=== PATIENT | female | born 1965 | race Caucasian/White ===

== ENCOUNTER 2018-10-25 17:16 | Inpatient (IN) | payer MEDICAID, OTHER ==
[2018-10-25 18:39] LABS: ADD MAN DIFF? NO
[2018-10-25 18:45] LABS: WHITE BLOOD COUNT 5.7 10^3/ul (4.8-10.8)
[2018-10-25 18:45] LABS: BASOPHIL # 0.1 10^3/ul (0.0-0.1); BASOPHILS % 2.1 % (0.0-2.0); EOSINOPHILS # 0.2 10^3/ul (0.0-0.5); EOSINOPHILS % 3.7 % (0.0-7.0); HEMATOCRIT 39.6 % (37.0-47.0); HEMOGLOBIN 13.6 g/dl (12.0-16.0); LYMPHOCYTES # 1.6 10^3/ul (0.8-2.9); LYMPHOCYTES % 28.5 % (15.0-51.0); MEAN CORPUSCULAR HEMOGLOBIN 34.3 pg (29.0-33.0); MEAN CORPUSCULAR HGB CONC 34.3 g/dl (32.0-37.0); MEAN CORPUSCULAR VOLUME 99.7 fl (82.0-101.0); MEAN PLATELET VOLUME 10.2 fl (7.4-10.4); MONOCYTE # 0.4 10^3/ul (0.3-0.9); MONOCYTES % 7.7 % (0.0-11.0); NEUTROPHIL # 3.3 10^3/ul (1.6-7.5); NEUTROPHILS % 57.6 % (39.0-77.0); PLATELET COUNT 224 10^3/UL (140-415); RED BLOOD COUNT 3.97 10^6/ul (4.20-5.40); RED CELL DISTRIBUTION WIDTH 11.7 % (11.5-14.5)
[2018-10-25 18:55] LABS: URINE BLOOD (Dip) POC Trace-intact (NEGATIVE); URINE GLUCOSE (Dip) POC Negative (NEGATIVE); URINE KETONES (Dip) POC Negative (NEGATIVE); URINE LEUKOCYTE EST (Dip) POC Negative (NEGATIVE); URINE NITRITE (Dip) POC Negative (NEGATIVE); URINE TOTAL PROTEIN POC Negative (NEGATIVE)
[2018-10-25 18:55] LABS: URINE PH (Dip) POC 6.5 (5.0-8.5)
[2018-10-25] MEDS: ONDANSETRON 4 MG INJ IV (19:01)
[2018-10-25] MEDS: morphine 2 MG INJ IV (19:01)
[2018-10-25 19:02] LABS: ADD UMIC YES; UR ASCORBIC ACID NEGATIVE (NEGATIVE); UR BILIRUBIN (Dip) NEGATIVE (NEGATIVE); UR BLOOD (Dip) 1+ mg/dL (NEGATIVE); UR CLARITY CLEAR (CLEAR); UR COLOR COLORLESS (YELLOW); UR GLUCOSE (Dip) NEGATIVE (NEGATIVE); UR KETONES (Dip) NEGATIVE (NEGATIVE); UR LEUKOCYTE ESTERASE (Dip) NEGATIVE Leu/ul (NEGATIVE); UR NITRITE (Dip) NEGATIVE (NEGATIVE); UR RBC 1 /HPF (0-5); UR SPECIFIC GRAVITY (Dip) 1.006 (1.003-1.030); UR TOTAL PROTEIN (Dip) NEGATIVE (NEGATIVE); UR UROBILINOGEN (Dip) NEGATIVE (NEGATIVE); UR WBC 1 /HPF (0-5)
[2018-10-25 19:03] LABS: ALANINE AMINOTRANSFERASE 27 IU/L (13-69); ALBUMIN 4.3 g/dl (3.3-4.9); ALBUMIN/GLOBULIN RATIO 1.34; ALKALINE PHOSPHATASE 86 IU/L (42-121); ANION GAP 9 (5-13); ASPARTATE AMINO TRANSFERASE 33 IU/L (15-46); BILIRUBIN,INDIRECT 0.5 mg/dl (0-1.1); BILIRUBIN,TOTAL 0.5 mg/dl (0.2-1.3); BLOOD UREA NITROGEN 15 mg/dl (7-20); CALCIUM 9.8 mg/dl (8.4-10.2); CARBON DIOXIDE 24 mmol/L (21-31); CHLORIDE 107 mmol/L (97-110); CREATININE 0.81 mg/dl (0.44-1.00); Estimated GFR > 60 mL/min (>60); GLUCOSE 93 mg/dl (70-220); POTASSIUM 4.2 mmol/L (3.5-5.1); SODIUM 140 mmol/L (135-144); TOTAL PROTEIN 7.5 g/dl (6.1-8.1)
[2018-10-25 19:04] LABS: INR 0.96; PROTIME 12.9 Sec (11.9-14.9)
[2018-10-25 19:05] LABS: PARTIAL THROMBOPLASTIN TIME 25.8 Sec (23.0-35.0)
[2018-10-25 19:14] LABS: TROPONIN-I < 0.012 ng/ml (0.000-0.120)
[2018-10-25] MEDS: TETANUS IMMUNE GLOB 250 UNIT SYG IM (19:15)
[2018-10-25] MEDS: DIPHTH/TET/ACEL PERTUSS (ADULT) 0.5 ML VIAL IM* (19:16)
[2018-10-25] MEDS: metroNIDAZOLE 500 MG/NS (PMX) 100 ML IVPB (19:16)
[2018-10-25] MEDS: DIAZEPAM 5 MG/ML SYG IV (20:38)
[2018-10-25] MEDS ORDERED: ACETAMINOPHEN 650 MG SUPP PR (22:00)
[2018-10-25] MEDS ORDERED: ALBUTEROL/IPRATROPIUM (NEB) 3 ML AMP NEB (22:00)
[2018-10-25] MEDS: DEXTROSE 5%-0.45% NACL 1,000 ML IV (22:52)
[2018-10-25] MEDS: KETOROLAC 30 MG INJ IV (22:52)
[2018-10-25 23:05] LABS: LACTIC ACID 0.9 mmol/L (0.5-2.0)
[2018-10-25] MEDS: morphine 4 MG/ML VIAL IV (23:34)
[2018-10-25] MEDS: PANTOPRAZOLE 40 MG INJ IV (23:34)
[2018-10-26] MEDS: CYCLOBENZAPRINE 10 MG TAB PO ×3 (01:12→18:24)
[2018-10-26] MEDS: LORAZEPAM 2 MG INJ IV (01:49)
[2018-10-26 05:08] LABS: ADD MAN DIFF? NO
[2018-10-26] MEDS: morphine 4 MG/ML VIAL IV ×3 (05:08→19:32)
[2018-10-26 05:17] LABS: BASOPHIL # 0.1 10^3/ul (0.0-0.1); EOSINOPHILS # 0.2 10^3/ul (0.0-0.5); EOSINOPHILS % 3.9 % (0.0-7.0); HEMATOCRIT 37.3 % (37.0-47.0); HEMOGLOBIN 12.6 g/dl (12.0-16.0); LYMPHOCYTES # 1.6 10^3/ul (0.8-2.9); LYMPHOCYTES % 29.1 % (15.0-51.0); MEAN CORPUSCULAR HEMOGLOBIN 33.5 pg (29.0-33.0); MEAN CORPUSCULAR HGB CONC 33.8 g/dl (32.0-37.0); MEAN CORPUSCULAR VOLUME 99.2 fl (82.0-101.0); MONOCYTE # 0.4 10^3/ul (0.3-0.9); MONOCYTES % 7.8 % (0.0-11.0); NEUTROPHIL # 3.2 10^3/ul (1.6-7.5); NEUTROPHILS % 56.8 % (39.0-77.0); PLATELET COUNT 203 10^3/UL (140-415); RED BLOOD COUNT 3.76 10^6/ul (4.20-5.40); RED CELL DISTRIBUTION WIDTH 11.7 % (11.5-14.5)
[2018-10-26 05:17] LABS: WHITE BLOOD COUNT 5.6 10^3/ul (4.8-10.8)
[2018-10-26 05:38] LABS: ANION GAP 3 (5-13); BLOOD UREA NITROGEN 15 mg/dl (7-20); CALCIUM 9.2 mg/dl (8.4-10.2); CARBON DIOXIDE 31 mmol/L (21-31); CHLORIDE 107 mmol/L (97-110); CREATININE 0.84 mg/dl (0.44-1.00); Estimated GFR > 60 mL/min (>60); GLUCOSE 85 mg/dl (70-220); POTASSIUM 4.3 mmol/L (3.5-5.1); SODIUM 141 mmol/L (135-144)
[2018-10-26] MEDS: PANTOPRAZOLE 40 MG INJ IV (05:42)
[2018-10-26] MEDS: metroNIDAZOLE 500 MG/NS (PMX) 100 ML IVPB ×4 (05:42→23:44)
[2018-10-26] MEDS ORDERED: PANTOPRAZOLE 40 MG INJ IV (06:00)
[2018-10-26] MEDS: DEXTROSE 5%-0.45% NACL 1,000 ML IV ×2 (08:53→17:32)
[2018-10-26] MEDS: DIAZEPAM 5 MG/ML SYG IV (14:49)
[2018-10-26] MEDS: MAGNESIUM SULFATE 2 GM/50 ML 50 ML IVPB (21:27)
[2018-10-26] MEDS ORDERED: TETANUS IMMUNE GLOB 250 UNIT SYG IM (22:30)
[2018-10-26] MEDS: ONDANSETRON 4 MG INJ IV (23:07)
[2018-10-27] MEDS: DEXTROSE 5%-0.45% NACL 1,000 ML IV ×2 (03:10→20:34)
[2018-10-27] MEDS: KETOROLAC 30 MG INJ IV ×2 (03:10→11:55)
[2018-10-27] MEDS: MAGNESIUM SULFATE 2 GM/50 ML 50 ML IVPB ×2 (04:16→20:30)
[2018-10-27 05:21] LABS: ADD MAN DIFF? NO
[2018-10-27 05:27] LABS: WHITE BLOOD COUNT 6.7 10^3/ul (4.8-10.8)
[2018-10-27 05:27] LABS: BASOPHIL # 0.1 10^3/ul (0.0-0.1); BASOPHILS % 1.2 % (0.0-2.0); EOSINOPHILS # 0.1 10^3/ul (0.0-0.5); HEMATOCRIT 34.6 % (37.0-47.0); HEMOGLOBIN 12.1 g/dl (12.0-16.0); LYMPHOCYTES % 15.3 % (15.0-51.0); MEAN CORPUSCULAR HEMOGLOBIN 34.6 pg (29.0-33.0); MEAN CORPUSCULAR VOLUME 98.9 fl (82.0-101.0); MEAN PLATELET VOLUME 10.2 fl (7.4-10.4); MONOCYTE # 0.4 10^3/ul (0.3-0.9); MONOCYTES % 5.7 % (0.0-11.0); NEUTROPHIL # 5.1 10^3/ul (1.6-7.5); NEUTROPHILS % 76.5 % (39.0-77.0); PLATELET COUNT 206 10^3/UL (140-415); RED CELL DISTRIBUTION WIDTH 11.8 % (11.5-14.5)
[2018-10-27] MEDS: CYCLOBENZAPRINE 10 MG TAB PO (05:35)
[2018-10-27 05:54] LABS: MAGNESIUM 2.5 mg/dl (1.7-2.5)
[2018-10-27] MEDS: metroNIDAZOLE 500 MG/NS (PMX) 100 ML IVPB ×4 (06:04→23:51)
[2018-10-27] MEDS ORDERED: DIAZEPAM 2 MG TAB PO (16:30)
[2018-10-27] MEDS: DIAZEPAM 2 MG TAB PO (18:14)
[2018-10-27 19:53] LABS: C-REACTIVE PROTEIN 0.8 mg/dl (0.0-0.9)
[2018-10-27 20:11] LABS: PROCALCITONIN 0.03 ng/mL (0.00-0.10)
[2018-10-27] MEDS: DIAZEPAM 5 MG TAB PO (20:30)
[2018-10-27 20:35] LABS: ERYTHROCYTE SEDIMENTATION RATE 10 mm/Hr (0-30)
[2018-10-28] MEDS: DIAZEPAM 5 MG TAB PO ×7 (01:00→23:01)
[2018-10-28] MEDS: KETOROLAC 30 MG INJ IV ×2 (03:32→19:54)
[2018-10-28] MEDS: SOD CHLORIDE 0.9% 500 ML IV (04:19)
[2018-10-28] MEDS: DEXTROSE 5%-0.45% NACL 1,000 ML IV ×2 (04:19→17:37)
[2018-10-28] MEDS: metroNIDAZOLE 500 MG/NS (PMX) 100 ML IVPB ×3 (05:19→17:31)
[2018-10-28 05:37] LABS: ANION GAP 3 (5-13); BLOOD UREA NITROGEN 8 mg/dl (7-20); CALCIUM 8.9 mg/dl (8.4-10.2); CARBON DIOXIDE 28 mmol/L (21-31); CHLORIDE 110 mmol/L (97-110); CREATININE 0.73 mg/dl (0.44-1.00); Estimated GFR > 60 mL/min (>60); GLUCOSE 95 mg/dl (70-220); MAGNESIUM 2.2 mg/dl (1.7-2.5); PHOSPHORUS 3.6 mg/dl (2.5-4.9); POTASSIUM 4.1 mmol/L (3.5-5.1); SODIUM 141 mmol/L (135-144)
[2018-10-28] MEDS: ENOXAPARIN 40 MG/0.4 ML SYG SC ×2 (09:00→09:16)
[2018-10-28] MEDS: FAMOTIDINE 20 MG INJ IV (09:14)
[2018-10-28] MEDS: MAGNESIUM SULFATE 2 GM/50 ML 50 ML IVPB ×3 (10:19→20:25)
[2018-10-29] MEDS: metroNIDAZOLE 500 MG/NS (PMX) 100 ML IVPB ×4 (00:15→18:20)
[2018-10-29] MEDS: KETOROLAC 30 MG INJ IV (02:54)
[2018-10-29] MEDS: DIAZEPAM 5 MG TAB PO ×7 (02:55→21:28)
[2018-10-29 05:34] LABS: ANION GAP 5 (5-13); BLOOD UREA NITROGEN 8 mg/dl (7-20); CALCIUM 8.9 mg/dl (8.4-10.2); CARBON DIOXIDE 27 mmol/L (21-31); CHLORIDE 109 mmol/L (97-110); CREATININE 0.75 mg/dl (0.44-1.00); Estimated GFR > 60 mL/min (>60); GLUCOSE 84 mg/dl (70-220); MAGNESIUM 2.3 mg/dl (1.7-2.5); PHOSPHORUS 3.9 mg/dl (2.5-4.9); POTASSIUM 3.8 mmol/L (3.5-5.1); SODIUM 141 mmol/L (135-144)
[2018-10-29] MEDS: ENOXAPARIN 40 MG/0.4 ML SYG SC (09:00)
[2018-10-29] MEDS: CYCLOBENZAPRINE 10 MG TAB PO (09:43)
[2018-10-29] MEDS: FAMOTIDINE 20 MG INJ IV (09:53)
[2018-10-29] MEDS: MAGNESIUM SULFATE 2 GM/50 ML 50 ML IVPB ×3 (09:53→21:29)
[2018-10-29 18:01] LABS: ADD UMIC YES; UR ASCORBIC ACID NEGATIVE (NEGATIVE); UR BACTERIA FEW /HPF (NONE SEEN); UR BILIRUBIN (Dip) NEGATIVE (NEGATIVE); UR BLOOD (Dip) 1+ mg/dL (NEGATIVE); UR CLARITY CLEAR (CLEAR); UR COLOR STRAW (YELLOW); UR GLUCOSE (Dip) NEGATIVE (NEGATIVE); UR KETONES (Dip) NEGATIVE (NEGATIVE); UR LEUKOCYTE ESTERASE (Dip) 2+ Leu/ul (NEGATIVE); UR NITRITE (Dip) NEGATIVE (NEGATIVE); UR RBC 1 /HPF (0-5); UR SPECIFIC GRAVITY (Dip) 1.004 (1.003-1.030); UR SQUAMOUS EPITHELIAL CELL FEW /HPF (FEW); UR TOTAL PROTEIN (Dip) NEGATIVE (NEGATIVE); UR UROBILINOGEN (Dip) NEGATIVE (NEGATIVE); UR WBC 8 /HPF (0-5)
[2018-10-30] MEDS: metroNIDAZOLE 500 MG/NS (PMX) 100 ML IVPB ×5 (00:26→23:50)
[2018-10-30] MEDS: DIAZEPAM 5 MG TAB PO ×9 (00:26→23:49)
[2018-10-30 06:38] LABS: ANION GAP 5 (5-13); BLOOD UREA NITROGEN 11 mg/dl (7-20); CALCIUM 9.2 mg/dl (8.4-10.2); CARBON DIOXIDE 28 mmol/L (21-31); CHLORIDE 109 mmol/L (97-110); CREATININE 0.79 mg/dl (0.44-1.00); Estimated GFR > 60 mL/min (>60); GLUCOSE 91 mg/dl (70-220); MAGNESIUM 2.3 mg/dl (1.7-2.5); PHOSPHORUS 4.1 mg/dl (2.5-4.9); POTASSIUM 3.9 mmol/L (3.5-5.1); SODIUM 142 mmol/L (135-144)
[2018-10-30 06:52] LABS: FREE T4 (FREE THYROXINE) 1.01 ng/dl (0.64-1.79)
[2018-10-30 07:06] LABS: TRIIODOTHYRONINE 0.94 ng/ml (0.97-1.69)
[2018-10-30] MEDS: MAGNESIUM SULFATE 2 GM/50 ML 50 ML IVPB ×3 (08:56→21:43)
[2018-10-30] MEDS: FAMOTIDINE 20 MG TAB PO (08:56)
[2018-10-30] MEDS: ENOXAPARIN 40 MG/0.4 ML SYG SC (08:59)
[2018-10-30] MEDS: morphine 4 MG/ML VIAL IV ×2 (12:25→18:57)
[2018-10-30] MEDS: FOSFOMYCIN 3 GM PACKET PO (12:32)
[2018-10-30] MEDS: ONDANSETRON 4 MG INJ IV (14:20)
[2018-10-30] MEDS: DIAZEPAM 5 MG/ML SYG IV (15:56)
[2018-10-30 18:04] LABS: CSF MN% 57.2 %; CSF PMN% 42.8 %; CSF RBC 5000 /uL (0-0); CSF WBC 7 /cmm (0-10)
[2018-10-30 18:33] LABS: TOTAL PROTEIN,CSF 56 mg/dl (12-60)
[2018-10-30 18:33] LABS: GLUCOSE,CSF 54 mg/dl (50-80)
[2018-10-30 18:36] LABS: CSF COLOR PINKISH
[2018-10-30 18:36] LABS: CSF CLARITY SLIGHTLY HAZY; CSF VOLUME 4.2 ml; CSF#TUBES REC'D 4
[2018-10-30 18:37] LABS: CSF#TUBE COUNT TUBE#4
[2018-10-30] MEDS: LIDOCAINE 1% (MPF) 5 ML VIAL (20:02)
[2018-10-30] MEDS: CYCLOBENZAPRINE 10 MG TAB PO (23:49)
[2018-10-31] MEDS: DIAZEPAM 5 MG TAB PO ×7 (03:09→22:49)
[2018-10-31] MEDS: metroNIDAZOLE 500 MG/NS (PMX) 100 ML IVPB ×3 (06:11→17:29)
[2018-10-31 06:38] LABS: ANION GAP 5 (5-13); BLOOD UREA NITROGEN 10 mg/dl (7-20); CALCIUM 8.8 mg/dl (8.4-10.2); CARBON DIOXIDE 28 mmol/L (21-31); CHLORIDE 106 mmol/L (97-110); CREATININE 0.81 mg/dl (0.44-1.00); Estimated GFR > 60 mL/min (>60); GLUCOSE 84 mg/dl (70-220); MAGNESIUM 2.1 mg/dl (1.7-2.5); PHOSPHORUS 4.7 mg/dl (2.5-4.9); POTASSIUM 4.1 mmol/L (3.5-5.1); SODIUM 139 mmol/L (135-144)
[2018-10-31] MEDS: FAMOTIDINE 20 MG TAB PO (08:25)
[2018-10-31] MEDS: MAGNESIUM SULFATE 2 GM/50 ML 50 ML IVPB ×3 (08:26→21:02)
[2018-10-31] MEDS: ENOXAPARIN 40 MG/0.4 ML SYG SC (08:31)
[2018-10-31] MEDS ORDERED: BISACODYL (EC) 5 MG TAB PO (10:00)
[2018-10-31] MEDS: ACETAMINOPHEN 325 MG TAB PO ×2 (11:23→15:05)
[2018-10-31] MEDS: POLYETHYLENE GLYCOL 17 GM PACKET PO ×2 (11:23→21:01)
[2018-10-31] MEDS: CYCLOBENZAPRINE 10 MG TAB PO (15:04)
[2018-10-31] MEDS: DOCUSATE SODIUM 100 MG CAP PO (21:00)
[2018-10-31] MEDS: morphine 4 MG/ML VIAL IV (21:02)
[2018-11-01] MEDS: metroNIDAZOLE 500 MG/NS (PMX) 100 ML IVPB ×4 (01:05→17:02)
[2018-11-01] MEDS: DIAZEPAM 5 MG TAB PO ×8 (01:05→21:21)
[2018-11-01] MEDS: morphine 4 MG/ML VIAL IV ×4 (03:37→21:18)
[2018-11-01 06:13] LABS: ADD MAN DIFF? NO
[2018-11-01 06:17] LABS: WHITE BLOOD COUNT 5.9 10^3/ul (4.8-10.8)
[2018-11-01 06:17] LABS: BASOPHIL # 0.1 10^3/ul (0.0-0.1); BASOPHILS % 1.7 % (0.0-2.0); EOSINOPHILS # 0.3 10^3/ul (0.0-0.5); EOSINOPHILS % 5.4 % (0.0-7.0); HEMATOCRIT 35.8 % (37.0-47.0); HEMOGLOBIN 12.1 g/dl (12.0-16.0); LYMPHOCYTES # 1.5 10^3/ul (0.8-2.9); LYMPHOCYTES % 24.6 % (15.0-51.0); MEAN CORPUSCULAR HGB CONC 33.8 g/dl (32.0-37.0); MEAN CORPUSCULAR VOLUME 100.6 fl (82.0-101.0); MEAN PLATELET VOLUME 10.4 fl (7.4-10.4); MONOCYTE # 0.4 10^3/ul (0.3-0.9); MONOCYTES % 6.9 % (0.0-11.0); NEUTROPHIL # 3.6 10^3/ul (1.6-7.5); NEUTROPHILS % 61.1 % (39.0-77.0); PLATELET COUNT 189 10^3/UL (140-415); RED BLOOD COUNT 3.56 10^6/ul (4.20-5.40); RED CELL DISTRIBUTION WIDTH 11.5 % (11.5-14.5)
[2018-11-01 06:49] LABS: ANION GAP 5 (5-13); BLOOD UREA NITROGEN 14 mg/dl (7-20); CALCIUM 9.1 mg/dl (8.4-10.2); CARBON DIOXIDE 28 mmol/L (21-31); CHLORIDE 104 mmol/L (97-110); CREATININE 0.88 mg/dl (0.44-1.00); Estimated GFR > 60 mL/min (>60); GLUCOSE 83 mg/dl (70-220); PHOSPHORUS 4.2 mg/dl (2.5-4.9); POTASSIUM 4.8 mmol/L (3.5-5.1); SODIUM 137 mmol/L (135-144)
[2018-11-01] MEDS: ENOXAPARIN 40 MG/0.4 ML SYG SC (09:00)
[2018-11-01] MEDS: DOCUSATE SODIUM 100 MG CAP PO ×2 (09:23→21:21)
[2018-11-01] MEDS: POLYETHYLENE GLYCOL 17 GM PACKET PO ×2 (09:23→21:21)
[2018-11-01] MEDS: FAMOTIDINE 20 MG TAB PO (09:31)
[2018-11-01] MEDS: MAGNESIUM SULFATE 2 GM/50 ML 50 ML IVPB ×3 (09:32→21:21)
[2018-11-02] MEDS: DIAZEPAM 5 MG TAB PO ×8 (00:18→20:55)
[2018-11-02] MEDS: metroNIDAZOLE 500 MG/NS (PMX) 100 ML IVPB ×4 (00:18→18:40)
[2018-11-02] MEDS: morphine 4 MG/ML VIAL IV (05:56)
[2018-11-02 06:40] LABS: ANION GAP 6 (5-13); BLOOD UREA NITROGEN 11 mg/dl (7-20); CALCIUM 9.5 mg/dl (8.4-10.2); CARBON DIOXIDE 29 mmol/L (21-31); CHLORIDE 104 mmol/L (97-110); CREATININE 0.75 mg/dl (0.44-1.00); Estimated GFR > 60 mL/min (>60); GLUCOSE 93 mg/dl (70-220); PHOSPHORUS 4.3 mg/dl (2.5-4.9); POTASSIUM 4.1 mmol/L (3.5-5.1); SODIUM 139 mmol/L (135-144)
[2018-11-02] MEDS: DOCUSATE SODIUM 100 MG CAP PO ×2 (08:59→20:55)
[2018-11-02] MEDS: FAMOTIDINE 20 MG TAB PO (08:59)
[2018-11-02] MEDS: MAGNESIUM SULFATE 2 GM/50 ML 50 ML IVPB ×3 (09:00→23:04)
[2018-11-02] MEDS: POLYETHYLENE GLYCOL 17 GM PACKET PO ×2 (09:00→20:56)
[2018-11-02] MEDS: ENOXAPARIN 40 MG/0.4 ML SYG SC (09:12)
[2018-11-02] MEDS: LACTULOSE 30ML CUP PO (11:00)
[2018-11-02] MEDS: CYCLOBENZAPRINE 10 MG TAB PO (14:00)
[2018-11-02] MEDS: IBUPROFEN 400 MG TAB PO (17:43)
[2018-11-02] MEDS: ONDANSETRON 4 MG INJ IV (21:16)
[2018-11-03] MEDS: metroNIDAZOLE 500 MG/NS (PMX) 100 ML IVPB ×3 (00:37→11:30)
[2018-11-03] MEDS: IBUPROFEN 400 MG TAB PO ×2 (00:37→11:30)
[2018-11-03] MEDS: DIAZEPAM 5 MG TAB PO ×8 (00:37→21:34)
[2018-11-03 05:15] LABS: ADD MAN DIFF? NO
[2018-11-03 05:18] LABS: WHITE BLOOD COUNT 4.1 10^3/ul (4.8-10.8)
[2018-11-03 05:18] LABS: BASOPHIL # 0.1 10^3/ul (0.0-0.1); EOSINOPHILS # 0.3 10^3/ul (0.0-0.5); EOSINOPHILS % 8.4 % (0.0-7.0); HEMATOCRIT 35.8 % (37.0-47.0); LYMPHOCYTES # 1.2 10^3/ul (0.8-2.9); LYMPHOCYTES % 29.1 % (15.0-51.0); MEAN CORPUSCULAR HEMOGLOBIN 33.7 pg (29.0-33.0); MEAN CORPUSCULAR HGB CONC 33.5 g/dl (32.0-37.0); MEAN CORPUSCULAR VOLUME 100.6 fl (82.0-101.0); MEAN PLATELET VOLUME 10.6 fl (7.4-10.4); MONOCYTE # 0.3 10^3/ul (0.3-0.9); MONOCYTES % 7.9 % (0.0-11.0); NEUTROPHIL # 2.1 10^3/ul (1.6-7.5); NEUTROPHILS % 52.4 % (39.0-77.0); PLATELET COUNT 185 10^3/UL (140-415); RED BLOOD COUNT 3.56 10^6/ul (4.20-5.40); RED CELL DISTRIBUTION WIDTH 11.6 % (11.5-14.5)
[2018-11-03 05:33] LABS: PHOSPHORUS 4.1 mg/dl (2.5-4.9)
[2018-11-03 05:33] LABS: MAGNESIUM 2.5 mg/dl (1.7-2.5)
[2018-11-03 05:35] LABS: ANION GAP 5 (5-13); BLOOD UREA NITROGEN 14 mg/dl (7-20); CALCIUM 9.4 mg/dl (8.4-10.2); CARBON DIOXIDE 28 mmol/L (21-31); CHLORIDE 107 mmol/L (97-110); CREATININE 0.74 mg/dl (0.44-1.00); Estimated GFR > 60 mL/min (>60); GLUCOSE 95 mg/dl (70-220); SODIUM 140 mmol/L (135-144)
[2018-11-03] MEDS: DOCUSATE SODIUM 100 MG CAP PO ×2 (09:00→20:48)
[2018-11-03] MEDS: POLYETHYLENE GLYCOL 17 GM PACKET PO ×2 (09:00→20:48)
[2018-11-03] MEDS: ENOXAPARIN 40 MG/0.4 ML SYG SC (09:00)
[2018-11-03] MEDS: FAMOTIDINE 20 MG TAB PO (09:08)
[2018-11-03] MEDS: MAGNESIUM SULFATE 2 GM/50 ML 50 ML IVPB ×3 (10:37→22:11)
[2018-11-03] MEDS: SOD CHLORIDE 0.9% 1,000 ML IV (20:50)
[2018-11-03] MEDS: metroNIDAZOLE 500 MG TAB PO (21:34)
[2018-11-04] MEDS: DIAZEPAM 5 MG TAB PO ×7 (00:32→23:35)
[2018-11-04] MEDS: SOD CHLORIDE 0.9% 500 ML IV (00:37)
[2018-11-04 04:57] LABS: WHITE BLOOD COUNT 4.1 10^3/ul (4.8-10.8)
[2018-11-04 04:57] LABS: ADD MAN DIFF? NO; BASOPHIL # 0.1 10^3/ul (0.0-0.1); BASOPHILS % 1.9 % (0.0-2.0); EOSINOPHILS # 0.3 10^3/ul (0.0-0.5); EOSINOPHILS % 6.5 % (0.0-7.0); HEMATOCRIT 34.8 % (37.0-47.0); HEMOGLOBIN 11.7 g/dl (12.0-16.0); LYMPHOCYTES # 1.4 10^3/ul (0.8-2.9); LYMPHOCYTES % 33.7 % (15.0-51.0); MEAN CORPUSCULAR HGB CONC 33.6 g/dl (32.0-37.0); MEAN CORPUSCULAR VOLUME 101.2 fl (82.0-101.0); MEAN PLATELET VOLUME 10.4 fl (7.4-10.4); MONOCYTE # 0.3 10^3/ul (0.3-0.9); NEUTROPHIL # 2.1 10^3/ul (1.6-7.5); NEUTROPHILS % 50.7 % (39.0-77.0); PLATELET COUNT 179 10^3/UL (140-415); RED BLOOD COUNT 3.44 10^6/ul (4.20-5.40); RED CELL DISTRIBUTION WIDTH 11.8 % (11.5-14.5)
[2018-11-04 05:16] LABS: PHOSPHORUS 3.5 mg/dl (2.5-4.9)
[2018-11-04 05:16] LABS: MAGNESIUM 2.2 mg/dl (1.7-2.5)
[2018-11-04 05:17] LABS: ANION GAP 3 (5-13); BLOOD UREA NITROGEN 12 mg/dl (7-20); CALCIUM 8.9 mg/dl (8.4-10.2); CARBON DIOXIDE 27 mmol/L (21-31); CHLORIDE 111 mmol/L (97-110); CREATININE 0.73 mg/dl (0.44-1.00); Estimated GFR > 60 mL/min (>60); GLUCOSE 92 mg/dl (70-220); POTASSIUM 4.2 mmol/L (3.5-5.1); SODIUM 141 mmol/L (135-144)
[2018-11-04] MEDS: metroNIDAZOLE 500 MG TAB PO ×3 (05:56→22:12)
[2018-11-04] MEDS: POLYETHYLENE GLYCOL 17 GM PACKET PO ×2 (09:00→20:53)
[2018-11-04] MEDS: DOCUSATE SODIUM 100 MG CAP PO ×2 (09:00→20:52)
[2018-11-04] MEDS: FAMOTIDINE 20 MG TAB PO (09:13)
[2018-11-04] MEDS: MAGNESIUM SULFATE 2 GM/50 ML 50 ML IVPB ×3 (09:13→20:53)
[2018-11-04] MEDS: ENOXAPARIN 40 MG/0.4 ML SYG SC (09:16)
[2018-11-04] MEDS: IBUPROFEN 400 MG TAB PO (14:57)
[2018-11-04] MEDS: ACETAMINOPHEN 325 MG TAB PO (21:00)
[2018-11-05] MEDS: metroNIDAZOLE 500 MG TAB PO ×3 (05:30→22:52)
[2018-11-05] MEDS: DIAZEPAM 5 MG TAB PO ×4 (05:30→22:52)
[2018-11-05] MEDS: POLYETHYLENE GLYCOL 17 GM PACKET PO ×2 (09:00→21:00)
[2018-11-05] MEDS: MAGNESIUM SULFATE 2 GM/50 ML 50 ML IVPB ×3 (09:44→23:53)
[2018-11-05] MEDS: CYCLOBENZAPRINE 10 MG TAB PO ×2 (09:44→20:38)
[2018-11-05] MEDS: DOCUSATE SODIUM 100 MG CAP PO ×2 (09:44→21:00)
[2018-11-05] MEDS: FAMOTIDINE 20 MG TAB PO (09:45)
[2018-11-05] MEDS: ENOXAPARIN 40 MG/0.4 ML SYG SC (09:48)
[2018-11-05] MEDS: IBUPROFEN 400 MG TAB PO (09:50)
[2018-11-05] MEDS: SOD CHLORIDE 0.9% 500 ML IV (20:31)
[2018-11-05] MEDS: ACETAMINOPHEN 325 MG TAB PO (22:55)
[2018-11-06] MEDS: metroNIDAZOLE 500 MG TAB PO ×3 (05:56→21:53)
[2018-11-06] MEDS: DIAZEPAM 5 MG TAB PO ×3 (05:57→17:58)
[2018-11-06] MEDS: POLYETHYLENE GLYCOL 17 GM PACKET PO ×2 (08:47→21:00)
[2018-11-06] MEDS: DOCUSATE SODIUM 100 MG CAP PO ×2 (08:47→21:00)
[2018-11-06] MEDS: FAMOTIDINE 20 MG TAB PO (08:53)
[2018-11-06] MEDS: IBUPROFEN 400 MG TAB PO (08:53)
[2018-11-06] MEDS: MAGNESIUM SULFATE 2 GM/50 ML 50 ML IVPB ×3 (08:53→20:17)
[2018-11-06] MEDS: ENOXAPARIN 40 MG/0.4 ML SYG SC (08:54)
[2018-11-06] MEDS ORDERED: DIAZEPAM 5 MG TAB PO (10:00)
[2018-11-07] MEDS: DIAZEPAM 5 MG TAB PO ×5 (00:15→23:41)
[2018-11-07] MEDS: morphine 4 MG/ML VIAL IV ×2 (04:20→15:04)
[2018-11-07] MEDS: metroNIDAZOLE 500 MG TAB PO ×3 (05:59→20:26)
[2018-11-07] MEDS: MAGNESIUM SULFATE 2 GM/50 ML 50 ML IVPB ×3 (08:52→20:25)
[2018-11-07] MEDS: ENOXAPARIN 40 MG/0.4 ML SYG SC (08:52)
[2018-11-07] MEDS: FAMOTIDINE 20 MG TAB PO (08:53)
[2018-11-07] MEDS: POLYETHYLENE GLYCOL 17 GM PACKET PO ×2 (08:53→20:25)
[2018-11-07] MEDS: DOCUSATE SODIUM 100 MG CAP PO ×2 (08:53→20:25)
[2018-11-07] MEDS: KETOROLAC 30 MG INJ IV (11:26)
[2018-11-07] MEDS: GABAPENTIN 100 MG CAP PO ×2 (13:21→20:25)
[2018-11-08] MEDS: SOD CHLORIDE 0.9% 250 ML IV (03:30)
[2018-11-08] MEDS: DIAZEPAM 5 MG TAB PO ×2 (06:00→12:00)
[2018-11-08] MEDS: metroNIDAZOLE 500 MG TAB PO ×2 (06:05→13:28)
[2018-11-08] MEDS: POLYETHYLENE GLYCOL 17 GM PACKET PO (09:00)
[2018-11-08] MEDS: DOCUSATE SODIUM 100 MG CAP PO (09:43)
[2018-11-08] MEDS: FAMOTIDINE 20 MG TAB PO (09:43)
[2018-11-08] MEDS: GABAPENTIN 100 MG CAP PO ×2 (09:43→13:28)
[2018-11-08] MEDS: MAGNESIUM SULFATE 2 GM/50 ML 50 ML IVPB ×2 (09:43→13:28)
[2018-11-08] MEDS: ENOXAPARIN 40 MG/0.4 ML SYG SC (09:50)
== END 2018-11-08 15:50 | disposition home health service (06) | DRG 869 ==
LOC: MS1 11-02 16:38 → E/R 17:16 → 6WM 10-31 20:13 → ICU 20:47
PROVIDERS: Internal Medicine
PROC: 009U3ZX Drainage of Spinal Canal, Percutaneous Approach, Diagnostic (ICD-10-PCS; principal; 2018-10-30)
DX: A35 Other tetanus (principal); R31.29 Other microscopic hematuria; R30.0 Dysuria; R51 Headache; H53.2 Diplopia; R42 Dizziness and giddiness; R06.03 Acute respiratory distress; Z87.442 Personal history of urinary calculi
CPT/HCPCS: 36415; 70450; 70553; 71045; 73630-LT; 73718; 73721; 80048; 80053; 81001; 81003; 82040; 82042; 82784; 82945; 83605; 83735; 84100; 84145; 84157; 84439; 84443; 84480; 84484; 84703; 85025; 85610; 85651; 85730; 86140; 86692; 87040-91; 87070; 87081; 87086; 89051; 90389; 90471; 90715; 92526; 92610; 93005; 93970; 94150; 96372; 96374; 96375; 97110; 97116; 97162; 97530; 99285-25